=== PATIENT | male | born 1975 | race Caucasian/White ===

== ENCOUNTER 2017-05-01 16:40 | Emergency (ER) | payer OTHER ==
[2017-05-01] MEDS: ACETAMINOPHEN 500 MG TAB PO (19:34)
[2017-05-01] MEDS: ONDANSETRON (ODT) 4 MG TAB ODT (19:34)
== END 2017-05-01 22:27 | disposition home or self-care (01) ==
LOC: FTE 16:40
DX: R51 Headache (principal); M25.512 Pain in left shoulder
CPT/HCPCS: 70450; 72125; 73030; 76536; 99285-25

== ENCOUNTER 2018-08-28 18:42 | Emergency (ER) | payer OTHER ==
[2018-08-28] MEDS: HYDROCODONE/APAP (5/325) TAB PO (19:16)
== END 2018-08-28 20:14 | disposition home or self-care (01) ==
LOC: FTE 18:42
DX: R07.89 Other chest pain (principal); M25.561 Pain in right knee
CPT/HCPCS: 71046; 73562; 99284-25